=== PATIENT | female | born 2000 | race Caucasian/White ===

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

== ENCOUNTER → 2024-12-01 | Outpatient (CLI) | payer OTHER ==
[2024-12-01 10:57] LABS: Basophils # (auto) 0 10 ^3/uL (0-0.2); Basophils % (auto) 0.5 % (0.0-2.0); Eosinophils # (auto) 0 10 ^3/uL (0-0.8); Eosinophils % (auto) 0.5 % (0.0-7.0); Hematocrit 39.7 % (36.0-46.0); Hemoglobin 13.3 g/dL (12.2-16.2); Mean Corpuscular Hemoglobin 27.8 pg (28.0-32.0); Mean Corpuscular Hgb Conc. 33.6 g/dL (32.0-36.0); Mean Corpuscular Volume 82.8 fL (80.0-100.0); Monocytes # (auto) 0.7 10 ^3/uL (0-1.3); Monocytes % (auto) 7.6 % (0.0-12.0); Neutrophils # (auto) 6.1 10 ^3/uL (1.6-8.6); Neutrophils % (auto) 68.4 % (37.0-80.0); Platelet Count (auto) 247 10^3/uL (140-450); Red Cell Distribution Width 13.7 % (11.8-14.3); White Blood Cell 8.9 10^3/uL (4.4-10.8)
[2024-12-01 11:32] LABS: Amphetamine Screen, Urine Neg (NEGATIVE); Barbiturate Scree,Urine Neg (NEGATIVE); Benzodiazephine Screen, Urine Neg (NEGATIVE); Cannabinoid Screen, Urine Neg (NEGATIVE); Cocaine Screen, Urine Neg (NEGATIVE); Opiate Scree,Urine Neg (NEGATIVE); Phencyclidine Screen, Urine Neg (NEGATIVE)
[2024-12-02 12:06] LABS: RPR Non Reactive (Non Reactive)
[2024-12-02 21:06] LABS: Chlamydia Trachomatis, NAA Negative (Negative); Neisseria gonorrhoeae, NAA Negative (Negative)
== END | disposition home or self-care (01) ==
LOC: LAB 09:25
PROVIDERS: ATTEND Obstetrics & Gynecology
DX: Z34.80 Encounter for supervision of other normal pregnancy, unspecified trimester (principal); Z31.430 Encounter of female for testing for genetic disease carrier status for procreative management; N39.0 Urinary tract infection, site not specified
CPT/HCPCS: 36415; 80307; 83036; 84144; 84702; 85025; 86592; 86703; 86762; 86850; 86900; 86901; 87086; 87340

== ENCOUNTER 2025-06-13 08:35 | Outpatient (CLI) | payer OTHER ==
[2025-06-13 09:02] LABS: Hematocrit 40.3 % (36.0-46.0); Hemoglobin 13.4 g/dL (12.2-16.2); Mean Corpuscular Hemoglobin 27.6 pg (28.0-32.0); Mean Corpuscular Volume 83.1 fL (80.0-100.0); Nucleated Red Blood Cells % 0.1 %
[2025-06-14 16:07] LABS: Chlamydia Trachomatis, NAA Negative (Negative); Neisseria gonorrhoeae, NAA Negative (Negative)
== END 2025-06-13 17:00 | disposition home or self-care (01) ==
LOC: LAB 08:35
PROVIDERS: ATTEND Obstetrics & Gynecology
DX: Z34.00 Encounter for supervision of normal first pregnancy, unspecified trimester (principal); Z72.51 High risk heterosexual behavior; Z3A.00 Weeks of gestation of pregnancy not specified
CPT/HCPCS: 36415; 85025; 86780

== ENCOUNTER 2025-06-27 09:03 | Inpatient (IN) | payer OTHER ==
[~2025-06-27] VITALS: Ht 162.6 cm; Wt 70.3 kg
[2025-06-27 10:19] LABS: Hematocrit 41.4 % (36.0-46.0); Hemoglobin 14.1 g/dL (12.2-16.2); Mean Corpuscular Hemoglobin 28.2 pg (28.0-32.0); Mean Corpuscular Volume 82.7 fL (80.0-100.0); Nucleated Red Blood Cells % 0.1 %
[2025-06-27 10:37] LABS: Alanine Aminotransferase 13 U/L (7-40); Albumin 4.2 g/dL (3.2-4.8); Anion Gap 10 (5-15); BUN/Creatinine Ratio 15.4 (10.0-20.0); Blood Urea Nitrogen 12 mg/dL (9-23); Calcium 9.1 mg/dL (8.7-10.4); Carbon Dioxide 23 mmol/L (20-31); Chloride 104 mmol/L (98-107); Glucose 79 mg/dL (74-106); Potassium 4.2 mmol/L (3.5-5.1); Sodium 137 mmol/L (136-145); Total Protein 6.8 g/dL (5.7-8.2); Uric Acid 8.0 mg/dL (3.1-7.8)
[2025-06-27] MEDS: MAGNESIUM SULFATE 100 ML IV ONE (10:37)
[2025-06-27 10:38] LABS: Bilirubin, Total 0.4 mg/dL (0.2-1.0)
[2025-06-27] MEDS: MAGNESIUM SULFATE 40MG/ML 1,000 ML IV SCH (10:39)
[2025-06-27 10:44] LABS: Alkaline Phosphatase 192 U/L (46-116); INR 0.94 (0.9-1.15); Partial Thromboplastin Time 29.0 SEC (24.5-34.5); Prothrombin Time 10.0 sec (9.3-11.8)
[2025-06-27] MEDS: hydrALAZINE HCL 20 MG/ML VL IV PRN (10:45)
[2025-06-27 11:03] LABS: Fern Testing Negative
[2025-06-27 11:11] LABS: Vaginal Bacteria Few; Vaginal Clue Cells Few; Vaginal Epithelial Cells Moderate; Vaginal Trichomonas Not Present
[2025-06-27 11:50] LABS: Urine Protein, UAD Negative (Negative)
--- NOTE | 2025-06-27 12:52 | DVHHP2 ---
OB CC & HPI Date Date of Admission: Jun 27, 2025 Patient Identification: : 1 Para: 0 EDC: Jul 06, 2025 EGA: 38wks Chief Complaints: Reason for admission: observation Admission Nurse Assessment Rev: No History of Present Complaints pt is admitted for severe pih and had a prolonged bradycardia.pt was sent to [facility] for r/o rom low fld and noted to have high bp .due to prolonged bradycardia and remote chance of delivery since cervix is closed and labs are worsenin g marilee;l proceed with pcs .all options were d/w pt ,pt wishes to proceed with pcs Past Medical History Cardiac: No pertinent Hx Pulmonary: No pertinent Hx Central Nervous System: No pertinent Hx GI: No pertinent Hx Hemotology/Oncology: No pertinent Hx Hepatobiliary: No pertinent Hx Psychiatric: No pertinent Hx Musculoskeletal: No pertinent Hx Rheumotologic: No pertinent Hx Infectious Disease: No peritnent Hx ENT: No pertinent Hx Renal/: No pertinent Hx Endocrine: No pertinent Hx Dermatology: No pertinent Hx Past Surgical History: No pertinent Hx OB History OB History Care: Good Care Ultrasounds: Normal mid trimester US Obstetrical Complications: None Medical Complications: None Allergies: Coded Allergies: NO KNOWN ALLERGIES (Unverified , 06/06/18) Home Meds No Active Prescriptions or Reported Meds Current Medications Current Medications Medications (Trade) Dose Ordered Sig/John Route PRN Reason Start Time Stop Time Status Last Admin Magnesium Sulfate 1,000 ml @ 50 mls/hr Q20H IV 06/27/25 10:35 06/27/25 10:39 Hydralazine HCl (Apresoline Injection) 5 mg Q20MP PRN IV SBP>160 or DBP>95 06/27/25 10:15 06/27/25 11:09 Family & Social History Family/Social History Blood Type: Unknown Rubella: unknown RPR/VDRL: Negative GBS Status: Unknown HBsAG: Negative Review of Systems Constitutional: No symptom reported Ears, Nose, & Throat: No symptom reported Eyes: No symptom reported Pulmonary/Respiratory: No symptom reported Cardiovascular: No symptom reported Gastrointestinal: No symptom reported Genitourinary: No symptom reported Musculoskeletal: No symptom reported Skin: No symptom reported Psychiatric: No symptom reported Endocrine: No symptom reported Hemotologic/Lymphatic: No symptom reported OB Admission Exam Physical Exam Vitals: Vital Signs Date Time Temp Pulse Resp B/P (MAP) Pulse Ox O2 Delivery O2 Flow Rate FiO2 06/27/25 11:09 148/98 HEENT: TMs Normal, Fontanelles Normal, Nasal Mucosa Normal, Eyes non-injected, Oropharynx Normal, PERRLA, Moist Membranes, EOMI Heart: Rhythm Normal Lungs: Clear Abdomen: Non tender Extremities: Normal Reflexes: Normal Cervical Dilatation: Fingertip Effacement: 25% Station: -3 Membranes: Intact Heart Rate: 130's Accelerations: Accelerations Present Decelerations: No Decelerations Short Term Variability: Present Library Clerk Talking Books Variability: Average (6-25) Contractions on Admission: >10 Minutes Apart Intensity: Mild OB Plan Plan Admitting Diagnosis: severe induced hypertension iup sherry 38wks with sever pih fetus at risk Plan: Section Other Plan: informeed consent obtained,risks and compl of cs d/w pt .all questions answered possib of dvt,pe,infxn,bleeding d/w pt all questions answered pt fully understands wishes to proceed with pcs Visit Coding OBGYN Date of Service: Jun 27, 2025 Billing Provider: ZOE ARMANDO DO COGNOS REPORT DEVELOPER Common Visit Codes: 81633-HAGRBTP OBS CARE (HIGH) COGNOS REPORT DEVELOPER Procedure Codes: 57083-03- NON-STRESS TEST ZOE ARMANDO DO Jun 27, 2025 12:52
[2025-06-27] MEDS ORDERED: DOCU-94 PO (12:53)
[2025-06-27] MEDS ORDERED: IBUP-1456 PO (12:53)
[2025-06-27] MEDS ORDERED: HYDR-4072 PO (12:53)
[2025-06-27 13:07] LABS: Protein, Urine 9.8 mg/dL (1-14)
[2025-06-27 13:10] LABS: Amphetamine Screen, Urine Neg (NEGATIVE); Barbiturate Scree,Urine Neg (NEGATIVE); Benzodiazephine Screen, Urine Neg (NEGATIVE); Cocaine Screen, Urine Neg (NEGATIVE); Opiate Scree,Urine Neg (NEGATIVE)
[2025-06-27 13:11] LABS: Cannabinoid Screen, Urine Neg (NEGATIVE); Phencyclidine Screen, Urine Neg (NEGATIVE)
[2025-06-27] MEDS: ONDANSETRON HCL 4 MG/2 ML VIAL IV PRN (14:43)
[2025-06-27] MEDS: SUCCINYLCHOLINE CHLORIDE 20 MG/ML 10ML VIAL IV ONE (14:58)
[2025-06-27] MEDS: TETRACAINE 1% INJ 2 ML VIAL IJ ONE (14:58)
[2025-06-27] MEDS: ceFAZolin 2 GM/D5W50ml 50 ML IV ONE (15:00)
[2025-06-27] MEDS ORDERED: MIDAZOLAM HCL 2MG/2ML 2ml VIAL (1mg/ml) ONE (15:02)
[2025-06-27] MEDS ORDERED: SODIUM CHLORIDE LOCK 10 ML ONE (15:02)
[2025-06-27] MEDS ORDERED: ONDANSETRON HCL 4 MG/2 ML VIAL ONE (15:02)
[2025-06-27] MEDS ORDERED: MORPHINE SULF PF 5 MG/10 ML VIAL ONE (15:02)
[2025-06-27] MEDS ORDERED: BUPIVACAINE/DEXTROSE MPF 0.75% 2 ML AMP IT ONE (15:02)
[2025-06-27] MEDS ORDERED: fentaNYL CITRATE 100 MCG/2 ML VL ONE (15:02)
--- NOTE | 2025-06-27 15:41 | DVHOP2 ---
Operative Report DATE OF OPERATION: 06/27/25 PREOPERATIVE DIAGNOSES-IUP AT 38WKS WITH PROLONGED BRADYCARDIA REMOTE FROM DELIVERY,FETUS AT RISK,SEVERE PIH POSTOPERATIVE DIAGNOSES: SAME,NUCHAL CORD SURGEON: Flory Guerra D.O./JOSEPH ANESTHESIOLOGIST: LIZZIE TYPE OF ANESTHESIA : SPINAL CONSENT: The patient was informed of the risks and benefits of the procedure. The patient was informed of the risks and benefits of the procedure. These include but are not limited to , complications of anesthesia, postoperative infection, incomplete relief of symptoms, recurrence of symptoms, damage to bloo d vessels, nerves and tendons, deep venous thrombosis, pulmonary embolism and possible need for repeat surgery in the future. FINDINGS: Baby [G] with Apgars of [8] and [9]. Grossly normal appearing tubes and ovaries.VX,NUCHAL X1 PROCEDURES: Primary low transverse section. PROCEDURE IN DETAIL: The patient was taken to the operating room. She already had an epidural in place. She was then placed in supine position with a leftward tilt. A Pfannenstiel skin incision was made 2 cm above the symphysis pubis. This incision was carried to the underlying layer of fascia. The fascia was nicked in the midline. The incision was extended laterally. The superior aspect of the fascial incision was grasped and elevated. The same procedure was done to the inferior aspect of the fascial incision. The rectus muscles were then in the midline. Peritoneum was identified and entered. Peritoneal incision was extended superiorly and inferiorly with good visualization of the bladder. Bladder blade was inserted. Vesicouterine peritoneum was identified and entered. Lower uterine segment was incised in a transverse fashion. The infant was delivered from vertex presentation. Infant was baby [F] with Apgars [8] and [9]. Placenta was then removed manually. Uterus was exteriorized and cleared of all clots and debris. The incision was repaired using 0 Vicryl in a double-layered fashion. No bleeding was noted. Uterus was then returned to the abdomen. The gutters were cleared off all clots and debris. Peritoneum was closed using 0 Vicryl, fascia was closed using 0 Maxon, and skin was closed using laura. The patient tolerated the procedure well. She was taken to the recovery room in stable condition. ESTIMATED BLOOD LOSS: Estimated blood loss was noted to be 500 mL. Visit Coding OBN Date of Service: Jun 27, 2025 Billing Provider: FLORY GUERRA DO KNOWLEDGE MANAGER Common Visit Codes: [id number] INP/OBS CARE (HIGH) KNOWLEDGE MANAGER Procedure Codes: 79628-[id number] DELIVERY ONLY FLORY GUERRA DO Jun 27, 2025 15:41
[2025-06-27] MEDS ORDERED: METOCLOPRAMIDE HCL 5MG/ml INJ 2ml VIAL ONE (15:43)
--- NOTE | 2025-06-27 15:43 | POSTOP ---
Post-Operative Note Post-Operative Note Preop Diagnosis IUP AT 38WKS WITH PROLONGED BRADYCARDIA,FETUS AT RISK,PIH Postop Diagnosis: SAME,NUCHAL CORDX1 Operation performed PLTCS Specimen BBAY GIRL,APGARS 8-9,NUCHAL CORD Anesthesia: Regional Anesthesiologist: LIZZIE Blood Loss(fluid mgmt) 500ML Surgeon Zoe Guerra Nuclear Supervising Operator JOSEPH Implant NA Complications & Mgmt NONE Date 06/27/25 Time 15:41 Visit Coding OBGYN Date of Service: Jun 27, 2025 Billing Provider: ZOE GUERRA DO MUSIC BOX MECHANIC Common Visit Codes: 13665-[id number] INP/OBS CARE (HIGH) MUSIC BOX MECHANIC Procedure Codes: 66936-[id number] DELIVERY ONLY ZOE GUERRA DO Jun 27, 2025 15:43
[2025-06-27 16:06] VITALS: O2SAT 98
[2025-06-27] MEDS ORDERED: KETOROLAC TROMETH 30 MG/ML 1ML VIAL IV ONE (16:15)
[2025-06-27] MEDS ORDERED: HYDROmorphone HCL 2 MG/ML VL/or syr IV PRN ×2 (16:15)
[2025-06-27] MEDS ORDERED: MORPHINE SULFATE INJ 2 MG/ml SYRG IV PRN (16:15)
[2025-06-27] MEDS ORDERED: MORPHINE SULFATE 4 MG/ML SYR/VIAL IV PRN (16:15)
[2025-06-27] MEDS ORDERED: ceFAZolin 1GM/50ML 50 ML IV SCH (17:00)
[2025-06-27] MEDS ORDERED: GUM (CHEWING) 1 GUM CHEW CHEW ONE (17:00)
[2025-06-27] MEDS: ACETAMINOPHEN IV 1000 MG/100ML (10MG/ML) IV PRN (19:02)
[2025-06-27 19:12] VITALS: BP 132/87; PULSE 115; RESP 17; TEMP 97.8; O2SAT 100
[2025-06-27] MEDS: ceFAZolin 1GM/50ML 50 ML IV SCH (20:55)
[2025-06-27] MEDS: KETOROLAC TROMETH 30 MG/ML 1ML VIAL IV PRN (22:58)
[2025-06-27 23:08] VITALS: BP 136/89; PULSE 116; RESP 17; TEMP 97.8; O2SAT 100
[2025-06-28] VITALS (9 sets, daily range): BP systolic 109–143; BP diastolic 65–97; PULSE 78–108; RESP 16–18; TEMP 97.7–98.4; O2SAT 96–99
[2025-06-28] MEDS ORDERED: LACTATED RINGER'S 1,000 ML IV SCH (05:15)
[2025-06-28] MEDS: METOCLOPRAMIDE HCL 5MG/ml INJ 2ml VIAL IV ONE (06:28)
[2025-06-28 08:41] LABS: Hematocrit 35.5 % (36.0-46.0); Hemoglobin 12.1 g/dL (12.2-16.2); Mean Corpuscular Hemoglobin 28.2 pg (28.0-32.0); Mean Corpuscular Volume 82.4 fL (80.0-100.0); Nucleated Red Blood Cells % 0.0 %
[2025-06-28] MEDS: HYDROcodone-ACET 5/325MG TAB PO PRN (10:59)
[2025-06-28] MEDS: SIMETHICONE 80 MG CHEWABLE TABLET PO SCH (10:59)
[2025-06-28] MEDS: LORazepam 2MG/ML-1ML VIAL IV ONE (11:01)
[2025-06-28] MEDS ORDERED: LORazepam 2MG/ML-1ML VIAL IV ONE (12:15)
[2025-06-28] MEDS ORDERED: MAGNESIUM SULFATE 100 ML IV ONE (12:15)
[2025-06-28] MEDS ORDERED: MAGNESIUM SULFATE 40MG/ML 1,000 ML IV SCH (12:15)
[2025-06-28] MEDS: LABETALOL HCL 200 MG TAB PO SCH (12:45)
[2025-06-28] MEDS: IBUPROFEN 800 MG TAB PO PRN (15:02)
[2025-06-28] MEDS: DOCUSATE SOD 100 MG CAP PO SCH (21:40)
--- NOTE | 2025-06-29 01:18 | DVHPN2 ---
Progress Note Date Seen: Jun 29, 2025 Subjective -Lochia minimal -Regular diet well tolerated. -Ambulating and voiding well w/o feeling dizzy or lightheaded -Pain relieved with oral medication PRN -Passing flatus but no BM yet. - w/o problem - Contraceptive plan: Patient would like to discuss at her 6 week follow-up visit -Desires and requests to be discharged home today (06/29) vital signs Vital Sign Date Time Temp Pulse Resp B/P (MAP) Pulse Ox O2 Delivery O2 Flow Rate FiO2 06/28/25 23:00 97.8 96 16 110/70 (83) 96 97.8 06/28/25 19:30 Room Air 06/27/25 16:06 98 Total Intake and Output 06/28/25 06/28/25 06/29/25 15:00 23:00 07:00 Output Total 1314 ml 950 ml Balance -1314 ml -950 ml medications Current Medications Medications Dose Ordered Sig/John Route Start Time Stop Time Status Last Admin Dose Admin Hydralazine HCl 5 mg Q20MP PRN IV 06/27/25 10:15 06/27/25 14:40 5 MG Ondansetron HCl 4 mg Q4HPRN PRN IV 06/27/25 14:30 06/27/25 20:55 4 MG Lactated Ringer's 1,000 ml @ 125 mls/hr NOW IV 06/28/25 05:15 Docusate Sodium 100 mg Q12HR PO 06/28/25 22:00 06/28/25 21:40 100 MG Dimethicone 80 mg QID PO 06/28/25 12:00 06/28/25 21:40 80 MG Ibuprofen 800 mg Q8HP PRN PO 06/28/25 10:30 06/29/25 00:24 800 MG Acetaminophen/ Hydrocodone Bitart 1 tab Q4HPRN PRN PO 06/28/25 10:30 06/28/25 10:59 1 TAB Acetaminophen/ Hydrocodone Bitart 2 tab Q4HPRN PRN PO 06/28/25 10:30 Labetalol HCl 300 mg Q12HR PO 06/28/25 12:15 06/28/25 21:42 300 MG laboratory and microbiology Laboratory Tests 06/28/25 08:10 06/27/25 09:05 Test 06/27/25 09:05 Range/Units Serum Glucose 79 74-106 mg/dL Objective -A&O x4. No apparent distress. Affect appropriate -Afebrile, VSS -Chest: heart and lung sounds normal. -Breasts: Nipples intact w/o cracks or soreness -Abdomen: normal BS, soft, non-tender, no rebound or guarding, fundus firm @ U- 1, -Lower abdominal incision site with dressing dry and intact. No edema, erythema or induration -Extremities: no edema or tenderness Problems(with codes): (1) Status post delivery Assessment/Plan ASSESSMENT: 24 yo now Post operative & ppd # 2 s/p Primary Section for severe pre-eclampsia remote from delivery, doing well. Blood Type: O+ Breast feeding Rubella Immune PLAN: -Continue pain management with oral medications as previously ordered -Increase fluid intake and fiber in diet to promote regular bowel movements, Laxative PRN -Educated patient on self-care and warning signs to watch for, including PPH, infection, PPD, and pre-eclampsia -Continue routine care and anticipate discharge today (06/29) Plan discussed with: Patient Plan discussed with: Patient Visit Coding OBGYN Date of Service: Jun 29, 2025 Billing Provider: CAESAR WHITE CNM CHIEF MECHANICAL ENGINEER Common Visit Codes: [id number] INP/OBS CARE(MOD) CAESAR WHITE CNM Jun 29, 2025 01:18
--- NOTE | 2025-06-29 01:23 | DVHDS2 ---
Obstetrics Discharge Summary Obstetrics Discharge Summary Date of Admission: Jun 27, 2025 Date of Discharge: Jun 29, 2025 Reason For Admission: Section (Primary) Intrapartum Procedures: (Low Cervical Transverse) Procedures: Hct/date: (35.5 (06/28)), Hgb/date: (12.1 (06/28)) Discharge Diagnosis: Term -Delivered, Preeclampsia Discharge Information: Activity (Unrestricted. Advance as tolerated. Balance activities with rest periods. No heavy lifting, pushing or straining. Pelvic rest x 6 weeks), Diet (Routine regular diet rich in fiber, protein, iron and vitamin C with adequate fluid intake.), Medications (Ibuprofen 600mg every 6 hours as needed for pain. Colace 100mg twice a day as needed to keep bowel movements soft and prevent constipation. Continue Vitamin and iron), Discharge to (Home), Discarge date (06/29/2025) Discharge Care Plan Instructions - self care instructions given - emergency signs and symptoms including but not limited to pre-eclampsia precautions and signs of infection, PPH & of PPD reviewed with patient. -Follow up with OB Provider in 1 week. Subsequent appointments will be made at that time Visit Coding OBGYN Date of Service: Jun 29, 2025 Billing Provider: CAESAR WHITE CNM TECHNICAL WRITER Common Visit Codes: 06860-MLF/OBS DISCH DAY >30MIN CAESAR WHITE CNM Jun 29, 2025 01:23
[2025-06-29 03:00] VITALS: BP 109/65; PULSE 86; RESP 16; TEMP 98.1; O2SAT 96
[2025-06-29] MEDS: HYDROcodone-ACET 5/325MG TAB PO PRN (03:05)
[2025-06-29 06:50] VITALS: PULSE 82; RESP 18
[2025-06-29 06:55] VITALS: BP 119/73; PULSE 82; RESP 16; TEMP 97.7; O2SAT 98
--- NOTE | 2025-06-29 08:15 | DVHPN2 ---
Chief Complaints Patient reports: No new complaints Nursing reports: No new complaints Objective Vitals Vital Signs Date Time Temp Pulse Resp B/P (MAP) Pulse Ox O2 Delivery O2 Flow Rate FiO2 06/29/25 06:55 97.7 82 16 119/73 (88) 98 97.7 06/29/25 06:50 Room Air 06/27/25 16:06 98 Medications Current Medications Medications (Trade) Dose Ordered Sig/John Route PRN Reason Start Time Stop Time Status Last Admin Acetaminophen/ Hydrocodone Bitart (Ola 5/325MG Tab) 1 tab Q4HPRN PRN PO FOR PAIN 1-6 06/28/25 10:30 06/28/25 10:59 Acetaminophen/ Hydrocodone Bitart (Ola 5/325MG Tab) 2 tab Q4HPRN PRN PO FOR PAIN 7-06/28/25 10:30 06/29/25 03:05 Dimethicone (Mylicon Tab) 80 mg QID PO 06/28/25 12:00 06/29/25 06:21 Docusate Sodium (Colace Capsule) 100 mg Q12HR PO 06/28/25 22:00 06/28/25 21:40 Ibuprofen (Motrin Tablet) 800 mg Q8HP PRN PO BREAKTHROUGH PAIN 06/28/25 10:30 06/29/25 07:14 Labetalol HCl (Normodyne Tablet) 300 mg Q12HR PO 06/28/25 12:15 06/28/25 21:42 ENT: Normal Neck: Normal Lungs: Normal Cardiovascular: Normal Abdominal: Soft Extremities: Normal Studies Laboratory Tests 06/28/25 08:10 06/27/25 09:05 Test 06/27/25 09:05 Range/Units Serum Glucose 79 74-106 mg/dL Ass/Plan Assessment S/P PCS Plan SUPPORTIVE CARE Visit Coding OBGYN Date of Service: Jun 28, 2025 Billing Provider: ZOE ARMANDO DO THIRD HELPER Common Visit Codes: [id number] INP/OBS CARE (HIGH) THIRD HELPER Procedure Codes: [id number] DELIVERY ONLY ZOE ARMANDO DO Jun 29, 2025 08:15
[2025-06-29 11:19] VITALS: BP 125/79; PULSE 90; RESP 18; TEMP 98; O2SAT 97
[2025-06-29 15:28] VITALS: BP 123/76; PULSE 88; RESP 16; TEMP 98; O2SAT 97
== END 2025-06-29 17:00 | disposition home or self-care (01) | DRG 788 ==
LOC: LDRP 09:03 → UNDOADMOB 09:03 → LDRP 10:00 → OBSVTOIN 10:00 → LDRP 15:34
PROVIDERS: ADMIT Obstetrics & Gynecology; ATTEND Obstetrics & Gynecology
PROC: 10D00Z1 Extraction of Products of Conception, Low, Open Approach (ICD-10-PCS; principal; 2025-06-27 15:04)
DX: O13.4 Gestational [pregnancy-induced] hypertension without significant proteinuria, complicating childbirth (principal); O69.81X0 Labor and delivery complicated by cord around neck, without compression, not applicable or unspecified; O99.892 Other specified diseases and conditions complicating childbirth; R00.1 Bradycardia, unspecified; O14.14 Severe pre-eclampsia complicating childbirth; Z37.0 Single live birth; Z3A.38 38 weeks gestation of pregnancy
CPT/HCPCS: 36415; 59025; 80053; 80307; 81001; 81002; 82570; 84112; 84156; 84550; 85025; 85610; 85730; 86780; 86850; 86900; 86901; 87210; 94760; 94762; 96360; 96361; 96365; 96366; 96374; 96375; G0378; J0131; J0330; J1100; J1885; J2250; J2405; J2590